=== PATIENT | female | born 1945 | race Caucasian/White ===

== ENCOUNTER → 2023-02-25 | Emergency (ER) | payer OTHER ==
[~2023-02-25] VITALS: Ht 152.4 cm; Wt 52.6 kg
[~2023-02-25] MED LIST: SYNTHROID50 MCG PO
== END | disposition left against medical advice (07) ==
LOC: ER 11:06
DX: Z53.21 Procedure and treatment not carried out due to patient leaving prior to being seen by health care provider (principal)

== ENCOUNTER 2024-02-28 09:28 | Emergency (ER) | payer OTHER ==
[~2024-02-28] VITALS: Ht 152.4 cm; Wt 51.7 kg
[2024-02-28 10:00] VITALS: BP 120/62; O2SAT 100
== END 2024-02-28 12:27 | disposition home or self-care (01) ==
LOC: ER 09:30
DX: L84 Corns and callosities (principal); E03.9 Hypothyroidism, unspecified